=== PATIENT | male | born 1985 | race African-American/Black ===

== ENCOUNTER 2022-07-16 21:23 | Observation (INO) ==
[2022-07-16 22:13] LABS: Basophils % (auto) 0.9 %; Eosinophils # (auto) 0.19 K/uL (0-0.50); Eosinophils % (auto) 1.6 %; Hematocrit (blood only) 43.6 % (42.0-52.0); Hemoglobin 14.9 g/dl (14.0-18.0); Immature Granulocytes # (auto) 0.08 K/uL (0.01-0.20); Immature Granulocytes % (auto) 0.7 %; Lymphocytes # (auto) 3.92 K/uL (1.2-3.4); Lymphocytes % (auto) 33.3 %; Mean Corpuscular Hemoglobin 28.9 pg (25.0-34.0); Mean Corpuscular Hgb Conc 34.2 g/dL (32.0-36.0); Mean Corpuscular Volume 84.7 fL (80.0-100.0); Mean Platelet Volume 10.3 fL (9.4-12.4); Monocytes # (auto) 1.18 K/uL (0.11-0.59); Neutrophils # (auto) 6.29 K/uL (1.40-6.50); Neutrophils % (auto) 53.5 %; Platelet Count 359 K/uL (130-400); RDW Coefficient of Variation 12.4 % (11.5-14.5); RDW Standard Deviation 38.1 fL (36.4-46.3); Red Blood Count 5.15 M/uL (4.70-6.10); White Blood Count 11.76 K/ul (4.8-10.8)
--- NOTE | 2022-07-16 22:14 | Emergency Department Note ---
History of Present Illness General Chief complaint: Cardiac Assessment Stated complaint: CHEST PAIN Time Seen by Provider: 07/16/22 22:00 History of Present Illness This is a 37-year-old male presenting to the emergency department for evaluation of left-sided chest pain. Patient's symptoms have been intermittent for the past several days. He lives in [place] and just flew into [place] this evening. He states that 4 days ago he went to an urgent care because of his symptoms, and was referred to an ER where CT angiogram was performed and negative for PE. The patient was having some vague symptoms before getting on his flight from [place], and was checked out by paramedics in the airport. He was felt clear to travel, got on the plane, and states his symptoms have persisted. He now presents to this department for further evaluation. He does have a past history of SVT and dyslipidemia. No distinct fevers, but he has felt warm. He rates the discomfort a 5/10, dull, and nonradiating. His family history of diabetes but no early cardiac disease. Home Medications Medication Instructions Recorded Confirmed Type metoprolol tartrate 50 mg tablet 50 mg PO DAILY 07/16/22 07/16/22 History rosuvastatin 20 mg tablet (Crestor) 20 mg PO DAILY 07/16/22 07/16/22 History Allergies Allergy/AdvReac Type Severity Reaction Status Date / Time diphenhydramine Allergy Tachycardia Verified 07/17/22 03:34 [From Benadryl] Past Med/Surg History Medical History (Updated 07/17/22 @ 04:52 by Barrington López PA-C) Dyslipidemia Pulmonary emboli SVT (supraventricular tachycardia) Surgical History No significant past surgical history Family History Other Diabetes Social History (Updated 07/17/22 @ 04:19 by Kirsten Burgess DO) Smoking Status: Former smoker Second Hand Exposure: Yes; Do You Dip or Chew Tobacco: No; Tobacco Cessation Education Requested by Patient: No Hx Alcohol Use: Yes Alcohol type: wine Hx Substance Use: No Preferred Language: Moldovan Communication Ability: Effective Wash Operator Required: No Beliefs That Will Affect Care: None Current Living Situation: Alone Other Information That Helps Us Care for You: No Feels Safe at Home: Yes Safety Concerns: Feels Safe At This Time Assistive Devices: None Review of Systems A total of 10 systems reviewed and were otherwise negative Physical Exam Vital Signs Vital Signs - 24 hr 07/16/22 21:32 07/16/22 21:46 07/16/22 21:30 Temperature 36.8 C Temperature Source Oral Pulse Rate 89 74 90 Pulse Rate [Apical] Respiratory Rate 18 16 Respiratory Effort / Characteristics Non-Labored Respiratory Depth Normal Blood Pressure 147/97 H Blood Pressure [Right Arm] Blood Pressure Mean 113 Blood Pressure Mean [Right Arm] Pulse Oximetry 98 100 Oxygen Delivery Method Room Air Room Air Sepsis Recent Fever Within 48 Hours No Sepsis New/Unexplained Change in Mental Status No Sepsis Action Taken by Nursing No Action Required 07/16/22 21:30 07/17/22 01:33 Temperature 36.8 C Temperature Source Oral Pulse Rate 66 Pulse Rate [Apical] 90 Respiratory Rate 18 Respiratory Effort / Characteristics Non-Labored Respiratory Depth Normal Blood Pressure Blood Pressure [Right Arm] 147/97 H Blood Pressure Mean Blood Pressure Mean [Right Arm] 113 Pulse Oximetry 100 Oxygen Delivery Method Room Air Sepsis Recent Fever Within 48 Hours Sepsis New/Unexplained Change in Mental Status Sepsis Action Taken by Nursing VITALS: Vitals are noted on the nurse's note and reviewed by myself. Vital signs stable. GENERAL: Well-developed, well-nourished, black male, who is in no acute distress and resting comfortably. Patient is cooperative with the examination. HEAD: Normocephalic atraumatic. EARS: External ear normal. External auditory canals clear, tympanic membranes pearly [place] without erythema or effusion bilaterally. EYES: Pupils equal round and reactive to light and accommodation. Conjunctivae without injection, sclerae without icterus. Extraocular movements intact. NOSE: Patent, turbinates without inflammation or discharge. MOUTH: Mucous membranes moist. Tonsils are not enlarged. Pharynx without erythema, blood, or exudate. Uvula midline. Airway patent. NECK: Supple without nuchal rigidity. No lymphadenopathy. No thyromegaly. Cervical spine is nontender. HEART: Regular rate and rhythm without murmurs gallops or rubs. LUNGS: Clear to auscultation bilaterally without wheezes, rales or rhonchi. No retractions or accessory muscle use. ABDOMEN: Positive normal bowel sounds x 4. Soft, nontender, without masses or organomegaly. No guarding or rebound tenderness. MUSCULOSKELETAL: No muscle atrophy, erythema, or edema noted. Full range of motion in all extremities. Course Administered Medications Heparin Sodium/Dextrose (Heparin Sodium/Dextrose) 25,000 units in 500 mls @ 29 mls/hr IV .[id number] ARIELLE; Protocol Stop: 08/16/22 03:14 Last Admin: 07/17/22 03:57 Dose: 1,450 units/hr, 29 mls/hr Documented By: ANNETTA Co-signed By: JOHANNA Discontinued Medications Heparin Sodium (Porcine) (Heparin Sod (Porcine) 1000 Unit/Ml) 6,000 units IV NOW ONE Stop: 07/17/22 03:46 Last Admin: 07/17/22 03:57 Dose: 6,000 units Documented By: ANNETTA Co-signed By: JOHANNA Sodium Chloride (Nss 1000ml) 1,000 mls @ 999 mls/hr IV .[id number] ARIELLE Stop: 07/16/22 23:15 Last Infusion: 07/16/22 23:17 Dose: 0 mls/hr Documented By: Admin: 07/16/22 22:16 Dose: 999 mls/hr Documented By: KYM Ioversol (Optiray 320 500ml) 109 ml IV ONCE ONE Stop: 07/17/22 00:35 Last Admin: 07/17/22 00:34 Dose: 109 ml Documented By: LILIANA Lorazepam (Lorazepam 2 Mg/1 Ml Vial) 1 mg IV NOW STA Stop: 07/17/22 03:04 Last Admin: 07/17/22 03:48 Dose: Not Given Documented By: ANNETTA Critical Care Time I have personally spent greater than 30 minutes of critical care time in the direct management of this patient. This includes bedside care, interpretation of diagnostic studies, and testing, discussion with consultants, patient, and family members, and other required patient management activities. This 30 minutes is in excess of all separately billable procedures. Medical Decision Making Differential Diagnosis Differential diagnosis includes, but is not limited to: Myocardial infarction, dysrhythmia, pericarditis, pneumothorax, aortic aneurysm/dissection, DVT/PE, anxiety, GERD, PUD, electrolyte imbalance, thyroid disorder, pneumonia, bronchitis, pancreatitis, and others Laboratory Data 07/16/22 21:20 07/16/22 21:20 Lab Results 07/16/22 07/16/22 07/16/22 Range/Units 21:20 21:20 21:20 WBC 11.76 H (4.8-10.8) K/ul RBC 5.15 (4.70-6.10) M/uL Hgb 14.9 (14.0-18.0) g/dl Hct 43.6 (42.0-52.0) % MCV 84.7 (80.0-100.0) fL MCH 28.9 (25.0-34.0) pg MCHC 34.2 (32.0-36.0) g/dL RDW Std Deviation 38.1 (36.4-46.3) fL RDW Coeff of Efe 12.4 (11.5-14.5) % Plt Count 359 (130-400) K/uL MPV 10.3 (9.4-12.4) fL Immature Gran % (Auto) 0.7 % Neut % (Auto) 53.5 % Lymph % (Auto) 33.3 % [place] % (Auto) 10.0 % Eos % (Auto) 1.6 % Baso % (Auto) 0.9 % Neut # (Auto) 6.29 (1.40-6.50) K/uL Lymph # (Auto) 3.92 H (1.2-3.4) K/uL [place] # (Auto) 1.18 H (0.11-0.59) K/uL Eos # (Auto) 0.19 (0-0.50) K/uL Baso # (Auto) 0.10 (0-0.2) K/uL Immature Gran # (Auto) 0.08 (0.01-0.20) K/uL PT 10.9 (9.0-12.0) Seconds INR 1.0 (0.9-1.1) APTT 23.6 (21.0-31.0) Seconds PTT Ratio 0.8 D-Dimer 580 H* (0-500) ug/L FEU Sodium 136 (136-145) mmol/L Potassium 3.7 (3.5-5.1) mmol/L Chloride 102 (98-107) mmol/L Carbon Dioxide 26 (21-32) mmol/L Anion Gap 8 (3-11) BUN 6 (6-23) mg/dl Creatinine 0.90 (0.6-1.4) mg/dl Est Cr Clr Drug Dosing Not Reportable Est GFR ( Amer) 126.0 ml/min Est GFR (Non-Af Amer) 108.7 ml/min BUN/Creatinine Ratio 6.7 L (10-20) Glucose 97 (70-99(Fasting)) mg/dl Calcium 9.6 (8.6-10.3) mg/dl Total Bilirubin 0.4 (0.2-1.0) mg/dl AST 25 (13-39) U/L ALT 32 (7-52) U/L Alkaline Phosphatase 80 (34-104) U/L Troponin I High Sens 7.0 (0-20) pg/ml Total Protein 8.1 (6.0-8.3) gm/dl Albumin 4.6 (3.4-5.0) gm/dl Globulin 3.5 (2.5-4.0) gm/dl Albumin/Globulin Ratio 1.3 (0.9-2) TSH (0.300-4.500) uIu/ml Free T4 (0.61-1.60) ng/dl SARS-CoV-2, RNA, NAAT (NEGATIVE) 07/16/22 07/16/22 07/17/22 Range/Units 22:15 22:15 03:13 WBC (4.8-10.8) K/ul RBC (4.70-6.10) M/uL Hgb (14.0-18.0) g/dl Hct (42.0-52.0) % MCV (80.0-100.0) fL MCH (25.0-34.0) pg MCHC (32.0-36.0) g/dL RDW Std Deviation (36.4-46.3) fL RDW Coeff of Efe (11.5-14.5) % Plt Count (130-400) K/uL MPV (9.4-12.4) fL Immature Gran % (Auto) % Neut % (Auto) % Lymph % (Auto) % [place] % (Auto) % Eos % (Auto) % Baso % (Auto) % Neut # (Auto) (1.40-6.50) K/uL Lymph # (Auto) (1.2-3.4) K/uL [place] # (Auto) (0.11-0.59) K/uL Eos # (Auto) (0-0.50) K/uL Baso # (Auto) (0-0.2) K/uL Immature Gran # (Auto) (0.01-0.20) K/uL PT (9.0-12.0) Seconds INR (0.9-1.1) APTT (21.0-31.0) Seconds PTT Ratio D-Dimer Cancelled (0-500) ug/L FEU Sodium (136-145) mmol/L Potassium (3.5-5.1) mmol/L Chloride (98-107) mmol/L Carbon Dioxide (21-32) mmol/L Anion Gap (3-11) BUN (6-23) mg/dl Creatinine (0.6-1.4) mg/dl Est Cr Clr Drug Dosing Est GFR ( Amer) ml/min Est GFR (Non-Af Amer) ml/min BUN/Creatinine Ratio (10-20) Glucose (70-99(Fasting)) mg/dl Calcium (8.6-10.3) mg/dl Total Bilirubin (0.2-1.0) mg/dl AST (13-39) U/L ALT (7-52) U/L Alkaline Phosphatase (34-104) U/L Troponin I High Sens (0-20) pg/ml Total Protein (6.0-8.3) gm/dl Albumin (3.4-5.0) gm/dl Globulin (2.5-4.0) gm/dl Albumin/Globulin Ratio (0.9-2) TSH 5.784 H (0.300-4.500) uIu/ml Free T4 0.85 (0.61-1.60) ng/dl SARS-CoV-2, RNA, NAAT NEGATIVE (NEGATIVE) Imaging Data Radiologist's Impression: Chest CTA 07/17/22 00:20 CR Exam(s): CTA CHEST IV Amt: 109ml optiray 320 EXAM: CT Chest With Intravenous Contrast CLINICAL HISTORY: Reason for exam: Chest pain, elevated dimer. TECHNIQUE: Axial computed tomographic images of the chest with intravenous contrast. CTDI is 22 mGy and DLP is 407.5 mGy-cm. Automated exposure control was utilized for the study. A dose lowering technique was utilized adhering to the principles of ALARA. COMPARISON: No relevant prior studies available. FINDINGS: Pulmonary arteries: There is nonobstructive pulmonary embolus in the right main pulmonary artery with obstruction embolus extending into the right lower, right upper and right middle lobe segmental pulmonary arteries. There is nonobstructive embolus in the left upper lobe segmental and obstructive embolus left lower lobe segmental and subsegmental pulmonary arteries. Aorta: No acute findings. No thoracic aortic aneurysm. Lungs: Unremarkable. No mass. No consolidation. Pleural space: Unremarkable. No significant effusion. No pneumothorax. Heart: There is moderate right heart strain. No cardiomegaly. No significant pericardial effusion. No evidence of RV dysfunction. Bones/joints: No acute fracture. No dislocation. Soft tissues: Unremarkable. Lymph nodes: Unremarkable. No enlarged lymph nodes. IMPRESSION: Extensive pulmonary emboli in the bilateral segmental upper, bilateral lower segmental and right middle lobe segmental pulmonary arteries with moderate right heart strain. Communications: Call Doctor Above results Electronically signed by: Stephanie Caldera MD 07/17/22 02:44 AM MDM Narrative Physical exam and history were performed. Nursing notes, EMR, and Medication List were personally reviewed. No social concerns were identified as barriers to patients care. Patient appears to have vague chest discomfort bringing him to the ER. On arrival vital signs are stable. IV access was established and labs were obtained. He was hydrated with normal saline. He was hydrated with normal saline. An order was placed for continuous cardiac monitoring. The monitor shows a rate of 90 with normal sinus rhythm. Patient's blood work is as above and was reviewed. He does not have a significantly elevated white blood cell count, gross anemia, bandemia, or significant electrolyte imbalance. Transaminases are not diagnostic. TSH shows euthyroid. COVID is negative. Chest x-ray without obvious acute process. The patient's D-dimer is elevated at 580 and he was sent to CT scan for imaging for pulmonary embolism. CT scan is as above and was reviewed. Unfortunately this does return positive for pulmonary embolism. This would explain the patient's symptoms. Because of the extensive nature of the pulmonary emboli and evidence of right heart strain he was started on heparin here in the ER. I did discuss the case with the on- call hospitalist team, who agreed to evaluate the patient here in the ER. Please see their dictation for further patient course, plan, and disposition. The chart was completed utilizing g4interactive Speech Voice Recognition Software. Grammatical errors, random word insertions, pronoun errors, and incomplete sentences are an occasional consequence of this system due to software limitations, ambient noise, and hardware issues. Any formal questions or concerns about the content, text, or information contained within the body of this dictation should be directly addressed to the provider for clarification. . Impression & Plan Pulmonary emboli, Atypical chest pain Discharge Plan Visit Data Chief Complaint: Cardiac Assessment Stated Complaint: CHEST PAIN ED Provider: Aaron Duran ED Midlevel Provider: Barrington López Discharge Problem: Pulmonary emboli, Atypical chest pain Patient Disposition: Admitted As Inpatient Discharge Instructions Interventions: ED Discharge Assessment Last Done: 07/17/22 04:09
[2022-07-16] MEDS ORDERED: SODIUM CHLORIDE 0.9% 1000ML 1,000 ML IV SCH (22:15)
[2022-07-16 23:05] LABS: Partial Thromboplastin Ratio 0.8; Partial Thromboplastin Time 23.6 Seconds (21.0-31.0); Prothrombin Time 10.9 Seconds (9.0-12.0)
[2022-07-16 23:10] LABS: Alanine Aminotransferase 32 U/L (7-52); Albumin Globulin Ratio 1.3 (0.9-2); Albumin Level 4.6 gm/dl (3.4-5.0); Alkaline Phosphatase 80 U/L (34-104); Anion Gap 8 (3-11); Aspartate Aminotransferase 25 U/L (13-39); BUN Creatinine Ratio 6.7 (10-20); Bilirubin,Total 0.4 mg/dl (0.2-1.0); Blood Urea Nitrogen 6 mg/dl (6-23); Calcium 9.6 mg/dl (8.6-10.3); Carbon Dioxide 26 mmol/L (21-32); Chloride 102 mmol/L (98-107); Est GFR (Non-African American) 108.7 ml/min; Globulin 3.5 gm/dl (2.5-4.0); Glucose 97 mg/dl (70-99(Fasting)); Potassium 3.7 mmol/L (3.5-5.1); Sodium 136 mmol/L (136-145); Total Protein 8.1 gm/dl (6.0-8.3)
[2022-07-16 23:26] LABS: Thyroid Stimulating Hormone 5.784 uIu/ml (0.300-4.500)
[2022-07-17 00:02] LABS: T4 Free Thyroxine 0.85 ng/dl (0.61-1.60)
[2022-07-17 00:17] LABS: D Dimer 580 ug/L FEU (0-500)
[2022-07-17] MEDS ORDERED: OPTIRAY 320 500ml IV ONE (00:34)
--- NOTE | 2022-07-17 02:44 | CT Scan Report ---
Exam(s): CTA CHEST IV Amt: 109ml optiray 320 EXAM: CT Chest With Intravenous Contrast CLINICAL HISTORY: Reason for exam: Chest pain, elevated dimer. TECHNIQUE: Axial computed tomographic images of the chest with intravenous contrast. CTDI is 22 mGy and DLP is 407.5 mGy-cm. Automated exposure control was utilized for the study. A dose lowering technique was utilized adhering to the principles of ALARA. COMPARISON: No relevant prior studies available. FINDINGS: Pulmonary arteries: There is nonobstructive pulmonary embolus in the right main pulmonary artery with obstruction embolus extending into the right lower, right upper and right middle lobe segmental pulmonary arteries. There is nonobstructive embolus in the left upper lobe segmental and obstructive embolus left lower lobe segmental and subsegmental pulmonary arteries. Aorta: No acute findings. No thoracic aortic aneurysm. Lungs: Unremarkable. No mass. No consolidation. Pleural space: Unremarkable. No significant effusion. No pneumothorax. Heart: There is moderate right heart strain. No cardiomegaly. No significant pericardial effusion. No evidence of RV dysfunction. Bones/joints: No acute fracture. No dislocation. Soft tissues: Unremarkable. Lymph nodes: Unremarkable. No enlarged lymph nodes. IMPRESSION: Extensive pulmonary emboli in the bilateral segmental upper, bilateral lower segmental and right middle lobe segmental pulmonary arteries with moderate right heart strain. Communications: Call Doctor Above results Electronically signed by: Stephanie Caldera MD 07/17/22 02:44 AM
[2022-07-17] MEDS ORDERED: Heparin IV Adult Wt-Based Standard WITH Bolus Protocol IV STA (02:59)
[2022-07-17] MEDS ORDERED: LORazepam 2 MG/1 ML VIAL IV STA (03:03)
[2022-07-17] MEDS ORDERED: HEPARIN SOD (PORCINE) 1000 UNIT/ML IV ONE ×2 (03:14→03:45)
--- NOTE | 2022-07-17 03:22 | History & Physical Report ---
Date of Service July 17, 2022 Assessment & Plan (1) Pulmonary emboli: Plan: 37yo male with history of SVT, Hyperlipidemia presenting with approximately one week of intermittent chest discomfort and palpitations. Found to have elevated d-dimer of 580. CTA of the chest revealed extensive pulmonary emboli in the bilateral segmental upper, bilateral lower segmental and right middle lobe segmental pulmonary arteries with moderate right heart strain. Patient is tachycardic with HR of 111. Blood pressure 126/83. Adequate oxygen saturation 98% on room air. Troponin is WNL at 7 Shock index mildly elevated at 0.9. PESI - Class II - Low risk mortality -Admit to medical with telemetry -Continue Heparin gtt with plan to transition to DOAC in the morning -Avoid further administration of IVF -?Unprovoked - patient did take multiple flights but his symptoms seem to have started prior to his air travel. He was recently on systemic steroids/Medrol dose back which can increase risk for VTE. Covid-19 testing is NEGATIVE. -Check bilateral LE venous dopplers -Check 2D echocardiogram -Patient should be given a copy of his records and his imaging prior to discharge so he can followup appropriately with his PCP in [place] after discharge. Consider hypercoagulable workup on outpatient basis. (2) Dyslipidemia: Plan: Chronic -Continue Crestor (3) SVT (supraventricular tachycardia): Plan: Patient in sinus rhythm currently -Hold Metoprolol for now given acute PE F/E/N - Heplock. Electrolytes WNL. Regular diet as tolerated Ppx - Heparin drip for treatment of acute PE Code - Full per discussion with patient Dispo - Admit to medical with telemetry History of Present Illness Chief Complaint: pulmonary emboli Primary Care Provider: Laith Ramos Deny is a pleasant 37yo male with history of HLP and SVT presenting with bilateral pulmonary emboli. Patient is from [place] and is visiting friends in [email or web address]. He reports having some episodes of tachycardia and vague chest discomfort approximately 1 week ago. He was given a Medrol dose pack which he completed. His symptoms persisted and he was seen at an Urgent Care in [place]. The physician that evaluated him was concerned for possible pulmonary embolism so he had a Ddimer and a CTA performed on 07/12/22. Patient reports both studies were found to be normal and he did not have a PE. He continued to have intermittent chest discomfort and episodes of elevated heart rate. He was traveling today from [place] to [place]. During his flight from [place] to [place] he reports having some increased chest discomfort and feeling "off". On his next flight from [place] to [place] he continued to feel poorly. He felt warm, flushed and dizzy. Also with elevated heart rate, palpitations and intermittent chest pain of 6/10. He was evaluated by airport paramedics and was told that he was likely dehydrated. He was recommended water, Gatorade and Day-quil. He drank some water and felt slightly improved. He continued to travel and landed in [email or web address] Upon arrival to his [employer] he began having more severe palpitations. He reports feeling a strong sensation in his heart, a strange beat and got the feeling that his heart might stop. He immediately called EMS and was transported to [facility] ER. In the ER he is afebrile, tachycardic otherwise HD stable. He was found to have an elevated D-dimer and bilateral PEs (reports below). Patient presently feels anxious. He denies ongoing chest pain, cough, SOB or dizziness. He has no personal or family history of VTE. He denies recent trauma. He did have some tingling and mild tightness in his posterior right leg but denies any swelling or tenderness. No additional complaints at this time. Specifically denies fever, chills, abdominal pain, vomiting, diarrhea or constipation. He had some mild nausea which has resolved. ER Course: NSS x 1L Heparin 6000unit bolus and gtt initiated 03:57 Allergies Allergy/AdvReac Type Severity Reaction Status Date / Time diphenhydramine Allergy Tachycardia Verified 07/17/22 03:34 [From Benadryl] Home Medications Medication Instructions Recorded Confirmed Type metoprolol tartrate 50 mg tablet 50 mg PO DAILY 07/16/22 07/16/22 History rosuvastatin 20 mg tablet (Crestor) 20 mg PO DAILY 07/16/22 07/16/22 History Past Med/Surg History Medical History (Updated 07/17/22 @ 04:24 by Kirsten Burgess DO) Dyslipidemia Pulmonary emboli SVT (supraventricular tachycardia) Surgical History No significant past surgical history Family History Other Diabetes Social History (Updated 07/17/22 @ 04:19 by Kirsten Burgess DO) Smoking Status: Light tobacco smoker Hx Alcohol Use: Yes (social EtOH use) Hx Substance Use: No Preferred Language: Latvian Feels Safe at Home: Yes Review of Systems Review of Systems: All systems reviewed & are unremarkable except as noted in HPI & below Physical Exam Physical Exam: General: patient resting comfortably, NAD, appears anxious but non-toxic, AA&O, answers questions appropriately Skin: warm, dry, intact, no rashes or lesions HEENT: NC/AT, PERRL, EOMI, anicteric sclera, conjunctiva without injection, external ear normal to inspection and nontender, nares patent, moist mucus membranes, dentition intact, no oropharyngeal lesions, neck supple, trachea midline, no LAD, no thyromegaly, no JVD Heart: +S1/S2, regular, tachycardic, no m/r/g Lungs: equal air entry bilaterally, no rales/rhonchi/wheezes Abd: +BS, soft, NT/ND, no masses/organomegaly/ascites Ext: warm, 2+ pulses in UE/LE bilaterally, no clubbing/cyanosis or edema Neuro: nonfocal, patient AA&O, speech intact, no facial droop, moving all extremities on command with equal strength 5/5 Results & Data Results & Data Vital Signs (Past 12 Hours) Vital Signs Temp Pulse Pulse Resp BP BP Pulse Ox 07/17/22 01:33 66 07/16/22 21:30 36.8 C 90 18 147/97 H 100 07/16/22 21:30 36.8 C 90 16 147/97 H 100 07/16/22 21:46 74 18 98 07/16/22 21:32 89 O2 Del Method 07/17/22 01:33 07/16/22 21:30 Room Air 07/16/22 21:30 Room Air 07/16/22 21:46 Room Air 07/16/22 21:32 Laboratory Results Laboratory Results WBC 11.76 K/ul (4.8-10.8) H 07/16/22 21:20 RBC 5.15 M/uL (4.70-6.10) 07/16/22 21:20 Hgb 14.9 g/dl (14.0-18.0) 07/16/22 21:20 Hct 43.6 % (42.0-52.0) 07/16/22 21:20 MCV 84.7 fL (80.0-100.0) 07/16/22 21:20 MCH 28.9 pg (25.0-34.0) 07/16/22 21: MCHC 34.2 g/dL (32.0-36.0) 07/16/22: RDW Std Deviation 38.1 fL (36.4-46.3) 07/16/22: RDW Coeff of Efe 12.4 % (11.5-14.5) 07/16/22: Plt Count 359 K/uL (130-400) 07/16/22 21:20 MPV 10.3 fL (9.4-12.4) 07/16/22 21: Immature Gran % (Auto) 0.7 % 07/16/22 21: Neut % (Auto) 53.5 % 07/16/22 21:20 Lymph % (Auto) 33.3 % 07/16/22 21:20 [place] % (Auto) 10.0 % 07/16/22 21:20 Eos % (Auto) 1.6 % 07/16/22 21: Baso % (Auto) 0.9 % 07/16/22 21:20 Neut # (Auto) 6.29 K/uL (1.40-6.50) 07/16/22 21:20 Lymph # (Auto) 3.92 K/uL (1.2-3.4) H 07/16/22 21:20 [place] # (Auto) 1.18 K/uL (0.11-0.59) H 07/16/22 21:20 Eos # (Auto) 0.19 K/uL (0-0.50) 07/16/22 21:20 Baso # (Auto) 0.10 K/uL (0-0.2) 07/16/22 21:20 Immature Gran # (Auto) 0.08 K/uL (0.01-0.20) 07/16/22 21: PT 10.9 Seconds (9.0-12.0) 07/16/22 21:20 INR 1.0 (0.9-1.1) 07/16/22 21:20 APTT 23.6 Seconds (21.0-31.0) 07/16/22 21:20 PTT Ratio 0.8 07/16/22 21:20 D-Dimer Cancelled 07/16/22 22:15 Sodium 136 mmol/L (136-145) 07/16/22 21:20 Potassium 3.7 mmol/L (3.5-5.1) 07/16/22 21:20 Chloride 102 mmol/L (98-107) 07/16/22 21:20 Carbon Dioxide 26 mmol/L (21-32) 07/16/22 21:20 Anion Gap 8 (3-11) 07/16/22 21:20 BUN 6 mg/dl (6-23) 07/16/22 21:20 Creatinine 0.90 mg/dl (0.6-1.4) 07/16/22 21:20 Est Cr Clr Drug Dosing Not Reportable 07/16/22 21:20 Est GFR ( Amer) 126.0 ml/min 07/16/22 21:20 Est GFR (Non-Af Amer) 108.7 ml/min 07/16/22 21:20 BUN/Creatinine Ratio 6.7 (10-20) L 07/16/22 21:20 Glucose 97 mg/dl (70-99(Fasting)) 07/16/22 21:20 Calcium 9.6 mg/dl (8.6-10.3) 07/16/22 21:20 Total Bilirubin 0.4 mg/dl (0.2-1.0) 07/16/22 21:20 AST 25 U/L (13-39) 07/16/22 21:20 ALT 32 U/L (7-52) 07/16/22 21:20 Alkaline Phosphatase 80 U/L (34-104) 07/16/22 21:20 Troponin I High Sens 7.0 pg/ml (0-20) 07/16/22 21:20 Total Protein 8.1 gm/dl (6.0-8.3) 07/16/22 21:20 Albumin 4.6 gm/dl (3.4-5.0) 07/16/22 21:20 Globulin 3.5 gm/dl (2.5-4.0) 07/16/22 21:20 Albumin/Globulin Ratio 1.3 (0.9-2) 07/16/22 21:20 TSH 5.784 uIu/ml (0.300-4.500) H 07/16/22 22:15 Free T4 0.85 ng/dl (0.61-1.60) 07/16/22 22:15 SARS-CoV-2, RNA, NAAT NEGATIVE (NEGATIVE) 07/17/22 03:13 Impressions Chest CTA 07/17/22 00:20 CR Exam(s): CTA CHEST IV Amt: 109ml optiray 320 EXAM: CT Chest With Intravenous Contrast CLINICAL HISTORY: Reason for exam: Chest pain, elevated dimer. TECHNIQUE: Axial computed tomographic images of the chest with intravenous contrast. CTDI is 22 mGy and DLP is 407.5 mGy-cm. Automated exposure control was utilized for the study. A dose lowering technique was utilized adhering to the principles of ALARA. COMPARISON: No relevant prior studies available. FINDINGS: Pulmonary arteries: There is nonobstructive pulmonary embolus in the right main pulmonary artery with obstruction embolus extending into the right lower, right upper and right middle lobe segmental pulmonary arteries. There is nonobstructive embolus in the left upper lobe segmental and obstructive embolus left lower lobe segmental and subsegmental pulmonary arteries. Aorta: No acute findings. No thoracic aortic aneurysm. Lungs: Unremarkable. No mass. No consolidation. Pleural space: Unremarkable. No significant effusion. No pneumothorax. Heart: There is moderate right heart strain. No cardiomegaly. No significant pericardial effusion. No evidence of RV dysfunction. Bones/joints: No acute fracture. No dislocation. Soft tissues: Unremarkable. Lymph nodes: Unremarkable. No enlarged lymph nodes. IMPRESSION: Extensive pulmonary emboli in the bilateral segmental upper, bilateral lower segmental and right middle lobe segmental pulmonary arteries with moderate right heart strain. Communications: Call Doctor Above results Electronically signed by: Stephanie Caldera MD 07/17/22 02:44 AM Diagnostic Findings CXR - by my interpretation - study shows midline trachea, normal cardiac shadow, no infiltrate, pulmonary edema or pneumothorax ECG Additional Comments: EKG -by my interpretation - study reveals NSR at 87bpm, normal axis, SR=685, QRS=82, RFa=786, normal waveforms, no overt ischemic changes PG Care Time/CCT Total # of Minutes Spent Total Time Spent with Patient: Total time spent is greater than 50% in coordination of care (as documented) at patient's floor/unit and/or counseling patient: Coding Level of Care Code 63207 INT INP/OBS CARE 2MIN Diagnoses Pulmonary emboli I26.99 Dyslipidemia E78.5 SVT (supraventricular tachycardia) I47.1
[2022-07-17] MEDS: HEPARIN SODIUM/DEXTROSE 25,000 UNITS/500 ML BAG IV SCH ×2 (03:57→23:26)
[2022-07-17] MEDS ORDERED: ONDANSETRON INJ 2 MG/ML 2 ML VIAL IV PRN (04:45)
--- NOTE | 2022-07-17 06:55 | Ultrasound Report ---
BILATERAL LOWER EXTREMITY VENOUS DOPPLER HISTORY: pulmonary emboli COMPARISON STUDY: None. FINDINGS: There is normal compressibility, flow, and augmentation within the bilateral lower extremit y deep venous systems. IMPRESSION: No DVT within the right or left lower extremity. ACT 112: Negative or not required by law. Electronically signed by: Eliecer Woodward M.D. 07/17/2022 6:53 AM
--- NOTE | 2022-07-17 07:46 | XRay Report ---
XR chest 1V not portable HISTORY: Atypical chest pain. COMPARISON: None. FINDINGS: The lungs are clear. Cardiac silhouette is normal in size. No pleural effusions. No pneumot horax. IMPRESSION: No acute process. ACT 112: Negative or not required by law. Electronically signed by: Eliecer Woodward M.D. 07/17/2022 7:45 AM
[2022-07-17] MEDS: METOPROLOL SUCC 50MG EXT REL TAB PO SCH (08:57)
[2022-07-17] MEDS: ROSUVASTATIN CALCIUM 20 MG TAB PO SCH (08:57)
[2022-07-17] MEDS: SODIUM CHLORIDE 0.9% 1000ML 1,000 ML IV SCH ×2 (08:58→20:33)
[2022-07-17 11:38] LABS: Partial Thromboplastin Ratio 4.1
[2022-07-17 11:45] LABS: Partial Thromboplastin Time 116.9 Seconds (21.0-31.0)
--- NOTE | 2022-07-17 11:55 | XCELERA ---
[id number]
--- NOTE | 2022-07-17 14:02 | Hospitalist Progress Note ---
Date of Service July 17, 2022 Assessment & Plan (1) Pulmonary emboli: Plan: Bilateral PEs present on admission most likely from prolonged airline traveling in a sitting position. Venous Doppler studies of both lower extremities are negative for DVT. He has no symptoms of DVT. He has never had any thrombus issues in the past. He is currently on a heparin drip and this will be switched to Xarelto at discharge, probably tomorrow, July 18 . There is evidence of right ventricular strain seen on cardiac echo. We will continue IV fluids for now to maintain satisfactory hydration and right ventricular filling pressures. (2) Dyslipidemia: Plan: Stable. Continue Crestor (3) SVT (supraventricular tachycardia): Plan: Metoprolol has been restarted. He apparently only takes metoprolol once daily so the tartrate formulation probably should be switched to the succinate formulation. Plan Anticipate discharge to home tomorrow, July 18, on oral Xarelto therapy. Admission and Anticipated Discharge Date Admission Date: July 17, 2022 Subjective Alert and oriented. No acute distress. He is on room air. Vital signs are stable. He currently is on a heparin drip. This will be switched over to Xarelto at discharge tomorrow, July 18. Continue IV fluids to maintain satisfactory hydration due to right ventricular strain Review of Systems Review of Systems: Constitutional-no fever or chills ENT-no blurred vision, no double vision, no epistaxis, no sore throat Respiratory-no cough, no wheezing. Some shortness of breath with exertion noted Cardiac-no palpitations, no chest pain, no syncope GI-no nausea, vomiting, diarrhea, melena, hematochezia -no urinary retention, no urinary incontinence, no dysuria, no hematuria Musculoskeletal-no joint pain, no muscle tenderness Skin-no bruising, no rashes, no pruritus Neuro-no isolated weakness, no paresthesia, no weakness Psych-no depression, no anxiety Physical Exam Physical Exam: General-alert and oriented x3, no fevers, no chills HEENT-head atraumatic and normocephalic, pupils equal and reactive to light, extraocular muscles intact Neck-no lymphadenopathy or thyromegaly, trachea midline Chest-clear to auscultation percussion. No rales wheezing or rhonchi Cardiac-regular rate and rhythm, normal S1 and S2 Abdomen-normal bowel sounds, nontender, no hepatosplenomegaly Extremities-no cyanosis, clubbing, or edema Neuro-cranial nerves II through XII intact, motor and sensory function within normal limits, strength symmetrical , no focal deficits Psych-normal affect, normal mood Results & Data Results & Data Vital Signs (Past 12 Hours) Vital Signs Temp Pulse Pulse Resp BP Pulse Ox O2 Del Method 07/17/22 11:07 36.7 C 87 21 115/72 98 Room Air 07/17/22 07:44 76 07/17/22 07:08 36.6 C 67 20 103/64 96 Room Air 07/17/22 04:30 Room Air 07/17/22 04:30 102 H 07/17/22 04:30 36.8 C 105 H 18 125/84 100 Room Air 07/17/22 04:02 111 H 20 126/83 98 Room Air Laboratory Results 07/16/22 21:20 07/16/22 21:20 PG Care Time/CCT Total # of Minutes Spent Total Time Spent with Patient: Total time spent is greater than 50% in coordination of care (as documented) at patient's floor/unit and/or counseling patient: Coding Level of Care Code 32656 SUB INP/OBS CARE 3/50MIN Diagnoses Pulmonary emboli I26.99 Dyslipidemia E78.5 SVT (supraventricular tachycardia) I47.1
--- NOTE | 2022-07-17 18:02 | Electrocardiogram Report ---
Test Reason : Blood Pressure : / mmHG Vent. Rate : 087 BPM Atrial Rate : 087 BPM P-R Int : 144 ms QRS Dur : 082 ms QT Int : 368 ms P-R-T Axes : 057 024 024 degrees QTc Int : 442 ms Normal sinus rhythm Possible Left atrial enlargement Borderline ECG No previous ECGs available Confirmed by Cash Cheek ([id number]) on 07/17/2022 6:01:35 PM Referred By: REFERRED SELF Confirmed By:Toribio Cheek
[2022-07-17 19:46] LABS: Partial Thromboplastin Ratio 2.6
[2022-07-17] MEDS: ACETAMINOPHEN 325 MG TAB PO PRN (20:45)
[2022-07-18 02:19] LABS: Hematocrit (blood only) 39.5 % (42.0-52.0); Hemoglobin 13.1 g/dl (14.0-18.0); Mean Corpuscular Hemoglobin 28.8 pg (25.0-34.0); Mean Corpuscular Hgb Conc 33.2 g/dL (32.0-36.0); Mean Corpuscular Volume 86.8 fL (80.0-100.0); Mean Platelet Volume 9.8 fL (9.4-12.4); Platelet Count 288 K/uL (130-400); RDW Coefficient of Variation 12.8 % (11.5-14.5); RDW Standard Deviation 40.2 fL (36.4-46.3); Red Blood Count 4.55 M/uL (4.70-6.10); White Blood Count 8.43 K/ul (4.8-10.8)
[2022-07-18 02:36] LABS: BUN Creatinine Ratio 8.1 (10-20); Calcium 8.7 mg/dl (8.6-10.3); Creatinine Clr Calc Pharmacy 105.5 ml/min; Est GFR (African American) 112.3 ml/min; Est GFR (Non-African American) 96.9 ml/min; Potassium 4.4 mmol/L (3.5-5.1)
[2022-07-18 03:29] LABS: Partial Thromboplastin Ratio 3.1
[2022-07-18] MEDS: HEPARIN SODIUM/DEXTROSE 25,000 UNITS/500 ML BAG IV SCH (04:37)
[2022-07-18] MEDS: METOPROLOL SUCC 50MG EXT REL TAB PO SCH (08:49)
[2022-07-18] MEDS: ROSUVASTATIN CALCIUM 20 MG TAB PO SCH (08:49)
[2022-07-18] MEDS ORDERED: RIVAROXABAN 15 MG TAB PO SCH (10:15)
--- NOTE | 2022-07-18 12:10 | Discharge Summary ---
Date of Service July 18, 2022 Admission HPI Per Admitting Provider Richard Barclay is a pleasant 37yo male with history of HLP and SVT presenting with bilateral pulmonary emboli. Patient is from [place] and is visiting friends in [place]. He reports having some episodes of tachycardia and vague chest discomfort approximately 1 week ago. He was given a Medrol dose pack which he completed. His symptoms persisted and he was seen at an Urgent Care in [place]. The physician that evaluated him was concerned for possible pulmonary embolism so he had a Ddimer and a CTA performed on 07/12/22. Patient reports both studies were found to be normal and he did not have a PE. He continued to have intermittent chest discomfort and episodes of elevated heart rate. He was traveling today from [place] to [place]. During his flight from [place] to [place] he reports having some increased chest discomfort and feeling "off". On his next flight from [place] to [place] he continued to feel poorly. He felt warm, flushed and dizzy. Also with elevated heart rate, palpitations and intermittent chest pain of 6/10. He was evaluated by airport paramedics and was told that he was likely dehydrated. He was recommended water, Gatorade and Day- quil. He drank some water and felt slightly improved. He continued to travel and landed in [place]. Upon arrival to his Air-B he began having more severe palpitations. He reports feeling a strong sensation in his heart, a strange beat and got the feeling that his heart might stop. He immediately called EMS and was transported to [facility] ER. In the ER he is afebrile, tachycardic otherwise HD stable. He was found to have an elevated D-dimer and bilateral PEs (reports below). Patient presently feels anxious. He denies ongoing chest pain, cough, SOB or dizziness. He has no personal or family history of VTE. He denies recent trauma. He did have some tingling and mild tightness in his posterior right leg but denies any swelling or tenderness. No additional complaints at this time. Specifically denies fever, chills, abdominal pain, vomiting, diarrhea or constipation. He had some mild nausea which has resolved. ER Course: NSS x 1L Heparin 6000unit bolus and gtt initiated 03:57 Principal Diagnosis Multiple subsegmental bilateral pulmonary emboli Discharge Exam General-alert and oriented x3, no fevers, no chills HEENT-head atraumatic and normocephalic, pupils equal and reactive to light, extraocular muscles intact Neck-no lymphadenopathy or thyromegaly, trachea midline Chest-clear to auscultation percussion. No rales wheezing or rhonchi Cardiac-regular rate and rhythm, normal S1 and S2 Abdomen-normal bowel sounds, nontender, no hepatosplenomegaly Extremities-no cyanosis, clubbing, or edema Neuro-cranial nerves II through XII intact, motor and sensory function within normal limits, strength symmetrical , no focal deficits Psych-normal affect, normal mood Discharge Data Allergies Allergy/AdvReac Type Severity Reaction Status Date / Time diphenhydramine Allergy Tachycardia Verified 07/17/22 03:34 [From Benadryl] Consultations 07/17/22 03:19 ED Decision to Admit Stat Ordered Studies 07/17/22 00:20 CT angio chest PE protocol Stat 07/17/22 04:45 US venous doppler LE Routine Hospital Course (1) Pulmonary emboli: Bilateral PEs present on admission most likely from prolonged airline traveling in a sitting position. Venous Doppler studies of both lower extremities are negative for DVT. He has no symptoms of DVT. He has never had any thrombus issues in the past. He was treated while hospitalized with a heparin drip and has now been switched to Xarelto 15 mg twice a day at the time of discharge today, July 18. There was evidence of right ventricular strain seen on cardiac echo and he received IV fluids while hospitalized and remained stable. (2) Dyslipidemia: Stable. Continue Crestor (3) SVT (supraventricular tachycardia): Metoprolol has been restarted. He apparently only takes metoprolol once daily so the tartrate formulation probably should be switched to the succinate formulation. He will discuss this with his PCP Plan Home today on Xarelto, July 18. Total Time Total Time Spent Total Time Spent (In Minutes): 40 minutes Discharge Plan Discharge Items Patient Disposition: Home - Self-Care Reason For Visit: BILATERAL PULMONARY EMBOLI Discharge Diagnosis: Bilateral pulmonary emboli Activity: Resume your previous activity Non-emergency contact: Primary Care Provider Call non-emergency contact if: you have any medication questions Follow-up/Referrals: Laith Sharif MD [Primary Care Provider] - Diet: Regular and Heart Healthy Addtl Attending Provider Instructions: Take Xarelto 15 mg twice a day for 3 weeks then the dosage will be changed to 20 mg once daily by your PCP Pending Studies at Discharge: No Stand-Alone Forms: My [facility], Smoking Cessation Medications and DC Order Prescriptions: New Xarelto 15 mg Tablet 15 mg PO BID Qty: 42 0RF Continued metoprolol tartrate 50 mg Tablet 50 mg PO DAILY rosuvastatin [Crestor] 20 mg Tablet 20 mg PO DAILY Discharge Orders: Discharge Order (Routine); Ordered 07/18/22 Ordered By: Carson Antonio Admission Data Admit Date/Time: 07/17/22 03:21 Attending Provider: Carson Antonio Admit Provider: Kirsten Burgess Primary Care Provider: Laith Sharif Other Providers: Kirsten Burgess Coding Level of Care Code 03941 INP/OBS DISCH >30 MIN Diagnoses Pulmonary emboli I26.99 Dyslipidemia E78.5 SVT (supraventricular tachycardia) I47.1
[2022-07-18] MEDS: ACETAMINOPHEN 325 MG TAB PO PRN (12:41)
[2022-07-18] MEDS: SODIUM CHLORIDE 0.9% 1000ML 1,000 ML IV SCH (13:41)
--- NOTE | 2022-07-18 14:23 | CT Scan Report ---
CT head/brain wo con CLINICAL HISTORY: 37 years-old Male with headache, systemic anticoagulation. Acute headache TECHNIQUE: Multiple axial CT images of the head were obtained without contrast. A dose lowering tech nique was utilized adhering to the principles of ALARA. CT DOSE: 614.27 mGy.cm COMPARISON: None. FINDINGS: No acute intracranial hemorrhage, midline shift, intracranial mass, hydrocephalus, territorial ischem ia or abnormal extra-axial collection. The calvarium is intact. The paranasal sinuses, mastoid air cells, and middle ear cavities are clear . IMPRESSION: No acute intracranial abnormality. ACT 112: Negative or not required by law. The above report was generated using voice recognition software. It may contain grammatical, syntax o r spelling errors. Electronically signed by: Ivan Cantu M.D. 07/18/2022 2:22 PM
== END 2022-07-18 17:05 | disposition home or self-care (01) | DRG 176 ==
LOC: EDBD → ED 21:23 → INTOOBSV 07-17 03:21 → 2S 07-17 03:21 → SUATTDRO 07-17 03:21 → 2S 07-17 04:09